=== PATIENT | male | born 2000 | race Two or more races ===

== ENCOUNTER 2020-03-05 11:41 | Emergency (ER) | payer BC, OTHER ==
[~2020-03-05] VITALS: Ht 180.3 cm; Wt 86.7 kg
[2020-03-05 11:43] VITALS: BP 126/79
--- NOTE | 2020-03-05 12:00 | NUR ---
PA EXAMINING PT
--- NOTE | 2020-03-05 12:33 | NUR ---
this tech tok vitals on pt
--- NOTE | 2020-03-05 13:14 | NUR ---
PA RE-EXAM AND GIVING DISCHARGE INFO. HR 100 AND 97 PERCENT O2 SATURATION.
== END 2020-03-05 13:17 | disposition home or self-care (01) ==
LOC: ED 12:42
DX: U07.1 COVID-19 (principal); R42 Dizziness and giddiness
CPT/HCPCS: 36415; 71045; 87635; 99284